=== PATIENT | male | born 1950 | race Caucasian/White ===

== ENCOUNTER 2021-12-26 08:47 | Observation (INO) ==
--- NOTE | 2021-12-26 09:41 | History & Physical Report ---
Date of Service December 26, 2021 Assessment & Plan (1) CHB (complete heart block): Plan: pt needs a pacemaker due to the CHB; discussed with pt that his EF is markedly down and that he would benefit from an ICD as well; given that pt will most likely be dependent on the pacemaker I think it is best from an infectious perspective he get the BIV ICD today. Discussed the procedure and potential risks, pt expressed an understanding and consents signed. (2) NICM (nonischemic cardiomyopathy): (3) Aortic stenosis: History of Present Illness Chief Complaint: SOB and near syncope Primary Care Provider: Linn Navarrete DO Pt admitted to outside hospital due to SOB; he was found to be in a high degree AV block; his low dose Toprol was held and he was monitored for a few more days; but he continued to have episodes of intermittent CHB and was recommended at minimum a pacemaker prior to discharge. Pt has recently diagnosed NICM with an EF of 20% and moderate . Allergies Allergy/AdvReac Type Severity Reaction Status Date / Time No Known Allergies Allergy Unverified 12/26/21 09:22 Home Medications Medication Instructions Recorded Confirmed Type aspirin 81 mg chewable tablet 81 mg PO DAILY 12/26/21 12/26/21 History empagliflozin 10 mg tablet 10 mg PO DAILY 12/26/21 12/26/21 History (Jardiance) furosemide 40 mg tablet (Lasix) 40 mg PO DAILY 12/26/21 12/26/21 History lisinopril 2.5 mg tablet 2.5 mg PO DAILY 12/26/21 12/26/21 History metoprolol succinate 25 mg 25 mg PO DAILY 12/26/21 12/26/21 History tablet,extended release 24 hr simvastatin 20 mg tablet 20 mg PO HS 12/26/21 12/26/21 History spironolactone 25 mg tablet 12.5 mg PO DAILY 12/26/21 12/26/21 History Past Med/Surg History Surgical History (Updated 12/26/21 @ 09:39 by Linn Navarrete DO) H/O cardiac catheterization Social History Smoking Status: Never smoker Hx Alcohol Use: No Hx Substance Use: No Current Living Situation: Spouse Feels Safe at Home: Yes Safety Concerns: Feels Safe At This Time Review of Systems All systems reviewed & are unremarkable except as noted in HPI & below Physical Exam Physical Exam: aaox3, NAD NC/AT, EOMI Supple No JVD bradycardia S1/S2,+ murmur CTA b/l no w/r/r soft nt/nd no LE edema b/l skin intact no focal deficits Results & Data ([facility]) Vital Signs (Past 12 Hours) Vital Signs Temp Pulse Resp BP Pulse Ox O2 Del Method 12/26/21 09:06 36.5 C 71 16 111/74 95 Room Air Diagnostic Findings echo at [facility] today: EF 20% LVH and moderate
[2021-12-26] MEDS ORDERED: LIDOCAINE 1% LOCAL 20 ML VIAL ONE ×2 (09:45→15:06)
[2021-12-26] MEDS ORDERED: BUPIVACAINE 0.25% 30 ML VIAL ONE (09:46)
[2021-12-26] MEDS ORDERED: fentaNYL citrate 100 MCG/2 ML VIAL ONE (09:46)
[2021-12-26] MEDS ORDERED: VANCOMYCIN HCL 1000MG/20ML VIAL ONE (09:46)
[2021-12-26] MEDS ORDERED: MIDAZOLAM HCL 5 MG/ML 1 ML VIAL ONE (09:46)
[2021-12-26] MEDS ORDERED: WATER, STERILE FOR INJ 10 ML VIAL ONE (09:46)
[2021-12-26] MEDS ORDERED: ceFAZolin 330 MG/ML 1 GM VIAL ONE (09:47)
--- NOTE | 2021-12-26 11:07 | Post Anesthesia Assessment ---
Date of Service December 26, 2021 Post Sedation Assessment Vital Signs Temp Pulse Resp BP Pulse Ox O2 Del Method 12/26/21 09:06 36.5 C 71 16 111/74 95 Room Air Recovery Score Activity: Moves 4 extremities Respiration: Deep Breath/Cough Circulation: +/-20% PreAnes Value Consciousness: Fully Awake Oxygen Saturation: > 92% On Room Air Discharge Sedation Level of Care: Fast Track Phase II Post Sedation Plan On clinical assessment, the patient appears to have tolerated the sedation without complications. Patient is recovering as anticipated. Patient will continue to be monitored by nursing and may be discharged when sedation discharge criteria are met per below protocol. Upon Completions of procedure up to 15 minutes continue every 5 minute vital signs and the P.A.R. score; then discharge to a Phase I or Fast Track to Phase II per the following guidelines: * Discharge Patient to appropriate Phase II area if PAR is 8 or greater or return to pre- procedure baseline. The post - procedure orders will be as directed. * If PAR score is less than 8 or not return to pre-procedure baseline then patient will follow Phase I monitoring till PAR is reached for Phase II. The Phase I may be done in procedure room or may call to secure a Phase I area. * If naloxone or flumazenil are used for reversal, hold in Phase I for continued monitoring from when last reversal dose was given for a minimum of 60 minutes or longer pending the nurse and/or physician discretion of patient condition before discharge to Phase II. Please call the Sedation Physician to re-evaluate and complete post-note for discharge to Phase II area. Do NOT discharge from procedure sedation or Phase 1 until post- sedation evaluation note is complete by procedure /sedation MD Sedation Discharge Instructions to be given to the patient at discharge to home.
--- NOTE | 2021-12-26 11:08 | Operative Report ---
Post Operative Report Pre & Post Diagnosis Intermittent CHB, RBBB, CHF, NICM, Operation Date: 12/26/21 10:00 <No data on this case meets the specified criteria> I identified the patient and participated in the time-out.: Yes Procedure Operation Date: 12/26/21 10:00 BiV ICD peripheral venogram <No data on this case meets the specified criteria> Surgeon Linn Navarrete, DO Casting Supervisor none Estimated Blood Loss 40 Findings Consistent with Post-Op Diagnosis Specimens none Complications possible [id number] still pending Description of Procedure see official report I attest to the content of the Intraoperative Record and any orders documented therein. Any exceptions are noted below.
--- NOTE | 2021-12-26 11:45 | XRay Report ---
SINGLE VIEW CHEST CLINICAL HISTORY: Status post pacemaker implantation. FINDINGS: 2 AP, portable, upright chest radiographs are obtained. No prior studies are available for comparison at the time of dictation. The examination is degraded by portable technique and patient ro tation. A 3-lead cardiac AICD has been implanted. Leads project over the right atrial appendage, the right ventricle, and the coronary sinus. The heart is enlarged noting atherosclerotic calcification o f the thoracic aorta. The pulmonary vasculature is noncongested. There is atelectasis at the left eliza g base. No airspace consolidation or large pleural effusion is identified. A calcified granuloma ther e is seen in the right midlung. There is a moderate left-sided pneumothorax with 4 cm of apical pleur al separation. The skeletal structures are osteopenic. The bony thorax is grossly intact. Cholecystec slava clips are seen in the right upper quadrant. IMPRESSION: 1. Moderate left apical pneumothorax. 2. A cardiac AICD has been implanted as above. 3. Cardiomegaly without radiographic evidence of congestive failure. 4. No airspace consolidation or large pleural effusion is identified ACT 112: Negative or not required by law. Electronically signed by: Uvaldo Hernandez M.D. 12/26/2021 11:43 AM
[2021-12-26] MEDS ORDERED: ACETAMINOPHEN 325 MG TAB ONE (13:25)
[2021-12-26] MEDS ORDERED: ICU PROTOCOL FOR HYPERGLYCEMIA PRN (14:30)
--- NOTE | 2021-12-26 14:44 | Critical Care Consultation ---
Date of Consultation December 26, 2021 Assessment & Plan (1) Pneumothorax: (2) Chronic heart failure with reduced ejection fraction and diastolic dysfunction: (3) HTN (hypertension): (4) Diabetes: (5) CHB (complete heart block): (6) NICM (nonischemic cardiomyopathy): (7) Aortic stenosis: (8) Non Hodgkin's lymphoma: (9) Pancreatic mass: Plan ICU Assessment and Plans 71 yo M with PMH HTN, DM2, aortic stenosis, NICM, complete heart block, HFrEF (EF 20% this month) and non-Hodgkin's lymphoma admitted to ICU for L pneumothorax following BIV ICD pacemaker implantation today, requiring ongoing monitoring of respiratory status and pneumothorax management. Neuro - [facility] ICU: NEGATIVE Sedation: None Analgesia: Tylenol PRN Mentating at baseline Cardiac - Complete heart block -S/p BIV AICD implantation on 12/26 -F/u CXR confirmed AICD in place -HR 70s, paced sinus rhythm at present per telemetry -Cardiology following Non-ischemic cardiomyopathy -Continue home lisinopril 2.5 mg, simvastatin, aspirin -Home metoprolol 25 mg initially held at outside hospital due to complete heart block, can resume metoprolol now s/p ICD placement HFrEF -CXR with evidence of cardiomegaly but not pulmonary edema or pleural effusion, pt also not hypervolemic at present -Echocardiogram from outside hospital with EF 20%, LVH, moderate -Continue home Lasix 40 mg, spironolactone, lisinopril, metoprolol resumed as above -Daily weights, I's and O's- no Telles in place as pt is spontaneously voiding Respiratory - Acute mild tension pneumothorax 2/2 trauma from pacemaker implantation -CXR after pacemaker- moderate L apical-basilar pneumothorax 4 cm in size, increased in size on repeat CXR, no tracheal deviation or mediastinal shift -Pt remained hemodynamically stable since admission to ICU -Needle decompression to chest tube suction performed at bedside on 12/26 -Pt tolerated procedure well, remained stable- some post-procedural emesis, Zofran administered -Serial CXRs to follow -Continue supplemental O2, wean to RA as tolerated GI - -Carb consistent, heart healthy diet ordered RENAL/ELECTROLYTES - -Avoiding fluids at this time due to pt's EF 20% -BMP, Mg, Phos ordered for AM -Replace electrolytes as needed- repletion protocol - -No concerns at this time ENDO - -Holding home diabetes medication -ICU hyperglycemia protocol HEME - -No concern for acute bleeding at this time -CBC ordered for AM ID - -No concern for infection at this time -CXR does not demonstrate evidence of pneumonia INTEGUMENTARY - -No issues at this time LINES/IV ACCESS - -PIV x2 -Thoracostomy with Pleur-Evac suction DVT PROPHYLAXIS - -Heparin 5000u SQ BID Anticipate downgrade from ICU in AM Supervising Physician Co-Signing Physician Notes Dr. Fofana was resident physician during care of patient. I separately evaluated patient for cash portions of the history and the exam. I was present during the critical portion of medical decision making, and I discussed the case with the resident. I generally agree with the findings and plan. Follow-up status post pacemaker placement with pneumothorax. Placed chest tube, anticipate transition to waterseal later this evening with follow-up x-rays in morning History of Present Illness Reason for Consultation: Pneumothorax s/p pacemaker implantation Requesting Physician: Linn Navarrete Attending Physician: Linn Navarrete, DO History of Present Illness 71 yo M with PMH HTN, DM2, aortic stenosis, NICM, complete heart block, HFrEF (EF 20% this month) and non-Hodgkin's lymphoma admitted to ICU for L pneumotho rax following BIV ICD pacemaker implantation today. Pt states he has had progressive dyspnea, fatigue and multiple near syncopal episodes over last several days which led to admission at [facility] on 12/22. Was subsequently found to have complete AV block, echocardiogram with EF 20% and moderate aortic stenosis, recent diagnosis of non-ischemic cardiomyopathy. Pt had multiple episodes of intermittent complete heart block and was recommended to undergo pacemaker implantation. Pt was subsequently transferred to [facility] on 12/26 for pacemaker implantation as this procedure would be delayed at outside hospital. Pt underwent BIV ICD implantation on 12/26. Later began to experience dyspnea and respiratory distress with L sided chest tightness which improved with 15L O2 via non-rebreather. CXR s/p procedure with evidence of moderate L apical pneumothorax. Pt subsequently transferred to ICU. On evaluation, pt continues to report dyspnea and some L sided chest discomfort but denies any difficulty speaking. Denies any overt pain, palpitations, swelling. Allergies Allergy/AdvReac Type Severity Reaction Status Date / Time No Known Allergies Allergy Unverified 12/26/21 09:22 Home Medications Medication Instructions Recorded Confirmed Type aspirin 81 mg chewable tablet 81 mg PO DAILY 12/26/21 12/26/21 History empagliflozin 10 mg tablet 10 mg PO DAILY 12/26/21 12/26/21 History (Jardiance) furosemide 40 mg tablet (Lasix) 40 mg PO DAILY 12/26/21 12/26/21 History lisinopril 2.5 mg tablet 2.5 mg PO DAILY 12/26/21 12/26/21 History metoprolol succinate 25 mg 25 mg PO DAILY 12/26/21 12/26/21 History tablet,extended release 24 hr metoprolol succinate 25 mg 25 mg PO DAILY #30 tabs 12/26/21 Rx tablet,extended release 24 hr (Toprol XL) simvastatin 20 mg tablet 20 mg PO HS 12/26/21 12/26/21 History spironolactone 25 mg tablet 12.5 mg PO DAILY 12/26/21 12/26/21 History Patient History Surgical History (Updated 12/26/21 @ 09:39 by Linn Navarrete DO) H/O cardiac catheterization Social History Smoking Status: Never smoker Hx Alcohol Use: No Hx Substance Use: No Current Living Situation: Spouse Feels Safe at Home: Yes Safety Concerns: Feels Safe At This Time Review of Systems Review of Systems: Per HPI Physical Exam Physical Exam: GENERAL - Appears stated age, communicating with provider and answering questions appropriately. Non-rebreather mask in place SKIN - No rashes. HEAD - NC/AT. EYES - PERRL with EOMI b/l. Anicteric sclerae. No conjunctival injection b/l EARS - No deformities of external structures b/l NOSE - Midline. No epistaxis or purulent drainage. Septum midline without deviation. MOUTH/OROPHARYNX - No perioral cyanosis. Buccal mucosa pink and moist. NECK - supple, no tracheal deviation, no JVD b/l, no anterior/posterior cervical lymphadenopathy, no thyromegaly, no nuchal rigidity LUNGS - Significantly diminished/faint breath sounds of L upper lung field, clear breath sounds in all lung ceballos of R side, no basilar crackles or wheezes b/l, no intercostal retractions CARDIAC - RRR with normal S1/S2. +3/6 systolic murmur over LUSB ABDOMEN - Soft, nontender, nondistended. Normal bowel sounds. No guarding or rebound. No hepatosplenomegaly or ascites. EXTREMITIES - No clubbing or peripheral cyanosis. No peripheral edema present. Dstal pulses of LE intact b/l NEUROLOGIC - AOx3, no gross focal motor or sensory deficits Results & Data Results & Data ([facility]) Vital Signs (Past 12 Hours) Vital Signs Temp Pulse Resp BP Pulse Ox O2 Del Method O2 Flow Rate 12/26/21 13:15 74 18 119/83 97 Non-rebreather 15 12/26/21 12:45 69 18 112/73 97 Non-rebreather 15 12/26/21 12:15 65 20 95/63 L 97 Non-rebreather 15 12/26/21 12:00 67 16 110/72 97 Non-rebreather 15 12/26/21 11:45 66 16 111/73 97 Non-rebreather 15 12/26/21 11:30 64 16 91/53 L 97 Nasal Cannula 4 12/26/21 11:15 75 16 98/65 L 93 Room Air 12/26/21 09:06 36.5 C 71 16 111/74 95 Room Air Resident Activity Tracking Resident Involvement: Resident Care Provided Care Provided: Adult Hospital Medicine
--- NOTE | 2021-12-26 15:09 | XRay Report ---
SINGLE VIEW CHEST CLINICAL HISTORY: Follow-up pneumothorax. FINDINGS: An AP, portable, upright chest radiograph is compared to study performed earlier the same d ay 12/26/2021. A 3-lead cardiac AICD is unchanged in position. The heart is enlarged noting atheroscler otic calcification of the thoracic aorta. The pulmonary vasculature is noncongested. The lungs and pl eural spaces are clear. A moderate to large left pneumothorax has increased in size from previous. Th is now extends to the left lung base. The trachea is midline. No right-sided pneumothorax is seen. Th e skeletal structures are osteopenic. The bony thorax is grossly intact. IMPRESSION: 1. There is a moderate to large left apical to basilar pneumothorax. This has increased in size from previous. 2. The trachea is midline. 3. Cardiomegaly and AICD without radiographic evidence of congestive failure. ACT 112: Negative or not required by law. Electronically signed by: Uvaldo Hernandez M.D. 12/26/2021 3:07 PM
[2021-12-26] MEDS ORDERED: ONDANSETRON INJ 2 MG/ML 2 ML VIAL ONE (15:23)
[2021-12-26] MEDS ORDERED: ONDANSETRON INJ 2 MG/ML 2 ML VIAL IV PRN (15:29)
[2021-12-26] MEDS ORDERED: Nursing to Pharmacy Communication SCH (15:45)
[2021-12-26] MEDS ORDERED: LIDOCAINE 1% LOCAL 20 ML VIAL INFIL ONE (16:15)
[2021-12-26] MEDS: ICU ELECTROLYTE REPLACEMENT PROTOCOL SCH (16:36)
--- NOTE | 2021-12-26 17:16 | XRay Report ---
XR chest 1V portable CLINICAL HISTORY: PTX drain TECHNIQUE: Single frontal radiograph of the chest was obtained. Comparison: Comparison is made to chest radiograph 12/26/2021 FINDINGS: Interval placement of a left chest wall drain. Previously noted left pneumothorax is significantly de creased in size. There is suggestion of a small apical component. The cardiomediastinal silhouette is stable. Stable appearance of AICD. IMPRESSION: Interval placement of a left chest drain with significant decrease in size of left pneumothorax. Ther e is likely a trace pneumothorax at the apex. ACT 112: Negative or not required by law. Electronically signed by: Domenico Gunn M.D. 12/26/2021 5:14 PM
[2021-12-26] MEDS: ACETAMINOPHEN 325 MG TAB PO PRN ×2 (19:50→23:45)
[2021-12-26] MEDS: HEPARIN SOD 5,000 UNIT/0.5 ML VIAL SQ SCH (20:34)
[2021-12-26] MEDS ORDERED: SIMVASTATIN 20 MG TAB PO SCH (21:00)
[2021-12-27] MEDS ORDERED: MoRPHine SULFATE 2 MG/ML CARP IV STA (00:18)
[2021-12-27] MEDS ORDERED: MoRPHine SULFATE 2 MG/ML CARP ONE (00:21)
[2021-12-27 06:40] LABS: Hemoglobin 14.9 g/dl (14.0-18.0); Mean Corpuscular Hemoglobin 29.6 pg (25.0-34.0); Mean Corpuscular Hgb Conc 34.7 g/dL (32.0-36.0); Mean Corpuscular Volume 85.3 fL (80.0-100.0); Mean Platelet Volume 11.6 fL (9.4-12.4); Platelet Count 174 K/uL (130-400); RDW Coefficient of Variation 13.3 % (11.5-14.5); RDW Standard Deviation 41.4 fL (36.4-46.3); Red Blood Count 5.04 M/uL (4.63-6.08); White Blood Count 7.55 K/ul (4.8-10.8)
[2021-12-27 07:05] LABS: BUN Creatinine Ratio 31.3 (10-20); Calcium 9.4 mg/dl (8.5-10.1); Creatinine Clr Calc Pharmacy 64.6 ml/min; Est GFR (African American) 92.4 ml/min; Est GFR (Non-African American) 79.8 ml/min; Magnesium 1.9 mg/dl (1.7-2.4); Phosphorus 4.2 mg/dl (2.5-4.9); Potassium 4.4 mmol/L (3.5-5.1)
[2021-12-27] MEDS ORDERED: Nursing to Pharmacy Communication SCH (07:15)
[2021-12-27] MEDS: HEPARIN SOD 5,000 UNIT/0.5 ML VIAL SQ SCH (07:27)
[2021-12-27] MEDS: ICU ELECTROLYTE REPLACEMENT PROTOCOL SCH (07:27)
[2021-12-27] MEDS: MAGNESIUM SULFATE / D5W 1 GM/100 ML BAG IV SCH ×2 (07:31→09:26)
[2021-12-27] MEDS ORDERED: lisinopril 2.5 MG TAB PO SCH (09:00)
[2021-12-27] MEDS ORDERED: FUROSEMIDE 40 MG TAB PO SCH (09:00)
[2021-12-27] MEDS ORDERED: ASPIRIN 81 MG ECTAB PO SCH (09:00)
[2021-12-27] MEDS ORDERED: METOPROLOL SUCC 25MG EXT REL TAB PO SCH (09:00)
[2021-12-27] MEDS ORDERED: SPIRONOLACTONE 12.5 MG TAB PO SCH (09:00)
--- NOTE | 2021-12-27 09:29 | Billing Data ---
Date of Service December 26, 2021 Coding Level of Care Code 31969 Inpt Consult Level 5
--- NOTE | 2021-12-27 09:32 | Critical Care Progress Note ---
Date of Service December 27, 2021 Assessment & Plan (1) Pneumothorax: Plan ICU Assessment and Plans 71 yo M with PMH HTN, DM2, aortic stenosis, NICM, complete heart block, HFrEF (EF 20% this month) and non-Hodgkin's lymphoma admitted to ICU for L pneumothorax following BIV ICD pacemaker implantation today, requiring ongoing monitoring of respiratory status and pneumothorax management. Neuro - CAM ICU: NEGATIVE Sedation: None Analgesia: Tylenol PRN Mentating at baseline Cardiac - Complete heart block -S/p BIV AICD implantation on 12/26 -F/u CXR confirmed AICD in place -HR 70s, paced sinus rhythm at present per telemetry -Cardiology following Non-ischemic cardiomyopathy -Continue home lisinopril 2.5 mg, simvastatin, aspirin -Home metoprolol 25 mg initially held at outside hospital due to complete heart block, can resume metoprolol now s/p ICD placement HFrEF -CXR with evidence of cardiomegaly but not pulmonary edema or pleural effusion, pt also not hypervolemic at present -Echocardiogram from outside hospital with EF 20%, LVH, moderate -Continue home Lasix 40 mg, spironolactone, lisinopril, metoprolol resumed as above -Daily weights, I's and O's- no Telles in place as pt is spontaneously voiding Respiratory - Pneumothorax appears resolved -On waterseal this morning will anticipate discontinuing Thora vent after repeat chest x-ray -Once chest tube DC'd will require follow-up 2 to 3 hours after that and could anticipate discharge if no reaccumulation of pneumothorax GI - -Carb consistent, heart healthy diet ordered RENAL/ELECTROLYTES - -Avoiding fluids at this time due to pt's EF 20% -BMP, Mg, Phos ordered for AM -Replace electrolytes as needed- repletion protocol - -No concerns at this time ENDO - -Holding home diabetes medication -ICU hyperglycemia protocol INTEGUMENTARY - -No issues at this time LINES/IV ACCESS - -PIV x2 DVT PROPHYLAXIS - -Heparin 5000u SQ BID Admission and Anticipated Discharge Date Admission Date: December 26, 2021 Supervising Physician Co-Signing Physician Notes update at 1400: interval removal of the chest tube, no reoccurance of PTX. Stable for discharge from [facility]. Advised to avoid air travel for 30 days. Subjective Feels at baseline. Hopes to go home later today Review of Systems Review of Systems: Nausea and vomiting have resolved Physical Exam Physical Exam: General: Alert. nontoxic. Skin: Warm, dry, Head: Atraumatic Ears, nose, mouth and throat: airway patent Cardiovascular: Normal peripheral perfusion Respiratory: no respiratory distress Thora vent in left chest. No airleak noted Gastrointestinal: Non distended Musculoskeletal: No deformity Results & Data Results & Data ([facility]) Vital Signs (Past 12 Hours) Vital Signs Temp Pulse Resp BP Pulse Ox O2 Del Method 12/27/21 08:01 136/67 12/27/21 08:01 36.7 C 76 20 96 Room Air 12/27/21 08:00 87 20 96 12/27/21 07:00 67 18 93 12/27/21 07:00 137/83 12/27/21 06:45 67 15 95 Room Air 12/27/21 08:00 77 12/27/21 03:30 77 14 96 12/27/21 03:01 71 18 93 12/27/21 03:01 113/77 12/27/21 03:00 68 23 95 12/27/21 02:30 72 34 H 98 12/27/21 02:00 69 37 H 94 12/27/21 02:00 114/67 12/27/21 01:30 61 17 95 12/27/21 01:00 69 14 95 12/27/21 01:00 128/67 12/27/21 00:30 61 20 98 12/27/21 00:00 64 21 96 12/27/21 00:00 115/59 L 12/26/21 23:50 72 12 96 12/26/21 23:40 64 21 96 12/26/21 23:30 64 28 H 96 12/26/21 23:20 63 16 96 12/26/21 23:10 92 H 19 97 12/26/21 23:00 67 18 97 12/26/21 23:00 130/86 12/26/21 22:50 77 17 95 12/26/21 22:40 69 15 95 12/26/21 22:30 69 18 95 12/26/21 22:20 58 L 15 97 12/26/21 22:10 70 15 96 12/26/21 22:00 82 24 95 12/26/21 22:00 121/83 12/26/21 21:50 63 16 95 12/26/21 21:40 72 15 95 12/26/21 21:30 61 15 94 Critical Care Results & Data Vital Signs (Past 12 Hours) Vital Signs Temp Pulse Resp BP Pulse Ox O2 Del Method 12/27/21 08:01 136/67 12/27/21 08:01 36.7 C 76 20 96 Room Air 12/27/21 08:00 87 20 96 12/27/21 07:00 67 18 93 12/27/21 07:00 137/83 12/27/21 06:45 67 15 95 Room Air 12/27/21 08:00 77 12/27/21 03:30 77 14 96 12/27/21 03:01 71 18 93 12/27/21 03:01 113/77 12/27/21 03:00 68 23 95 12/27/21 02:30 72 34 H 98 12/27/21 02:00 69 37 H 94 12/27/21 02:00 114/67 12/27/21 01:30 61 17 95 12/27/21 01:00 69 14 95 12/27/21 01:00 128/67 12/27/21 00:30 61 20 98 12/27/21 00:00 64 21 96 12/27/21 00:00 115/59 L 12/26/21 23:50 72 12 96 12/26/21 23:40 64 21 96 12/26/21 23:30 64 28 H 96 12/26/21 23:20 63 16 96 12/26/21 23:10 92 H 19 97 12/26/21 23:00 67 18 97 12/26/21 23:00 130/86 12/26/21 22:50 77 17 95 12/26/21 22:40 69 15 95 12/26/21 22:30 69 18 95 12/26/21 22:20 58 L 15 97 12/26/21 22:10 70 15 96 12/26/21 22:00 82 24 95 12/26/21 22:00 121/83 12/26/21 21:50 63 16 95 12/26/21 21:40 72 15 95 Lab & Micro Results (Past 24 Hours) RBC 5.04 M/uL (4.63-6.08) 12/27/21 WBC 7.55 K/ul (4.8-10.8) 12/27/21 Hgb 14.9 g/dl (14.0-18.0) 12/27/21 Hct 43.0 % (40.1-51.0) 12/27/21 MCV 85.3 fL (80.0-100.0) 12/27/21 MCH 29.6 pg (25.0-34.0) 12/27/21 MCHC 34.7 g/dL (32.0-36.0) 12/27/21 RDW Standard Deviation 41.4 fL (36.4-46.3) 12/27/21 RDW Coefficient of Variation 13.3 % (11.5-14.5) 12/27/21 Plt Count 174 K/uL (130-400) 12/27/21 MPV 11.6 fL (9.4-12.4) 12/27/21 Na 129 mmol/L (136-145) L 12/27/21 K 4.4 mmol/L (3.5-5.1) 12/27/21 Cl 96 mmol/L (98-107) L 12/27/21 CO2 25 mmol/L (21-32) 12/27/21 Anion Gap 8 (3-11) 12/27/21 BUN 30 mg/dl (6-23) H 12/27/21 Creatinine 0.96 mg/dl (0.6-1.4) 12/27/21 Estimated GFR ( Amer) 92.4 ml/min 12/27/21 Estimated GFR (Non-Af Amer) 79.8 ml/min 12/27/21 BUN/Creatinine Ratio 31.3 (10-20) H 12/27/21 Glu 92 mg/dl (70-99(Fasting)) 12/27/21 Ca 9.4 mg/dl (8.5-10.1) 12/27/21 Phosphorus Level 4.2 mg/dl (2.5-4.9) 12/27/21 Mg 1.9 mg/dl (1.7-2.4) 12/27/21 05:35 Calcium Level 9.4 mg/dl (8.5-10.1) 12/27/21 05:35 Diagnostic Findings (Past 24 Hours) Chest X-Ray 12/26/21 11:08 SINGLE VIEW CHEST CLINICAL HISTORY: Status post pacemaker implantation. FINDINGS: 2 AP, portable, upright chest radiographs are obtained. No prior studies are available for comparison at the time of dictation. The examination is degraded by portable technique and patient rotation. A 3-lead cardiac AICD has been implanted. Leads project over the right atrial appendage, the right ventricle, and the coronary sinus. The heart is enlarged noting atherosclerotic calcification of the thoracic aorta. The pulmonary vasculature is noncongested. There is atelectasis at the left lung base. No airspace consolidation or large pleural effusion is identified. A calcified granuloma there is seen in the right midlung. There is a moderate left-sided pneumothorax with 4 cm of apical pleural separation. The skeletal structures are osteopenic. The bony thorax is grossly intact. Cholecystectomy clips are seen in the right upper quadrant. IMPRESSION: 1. Moderate left apical pneumothorax. 2. A cardiac AICD has been implanted as above. 3. Cardiomegaly without radiographic evidence of congestive failure. 4. No airspace consolidation or large pleural effusion is identified ACT 112: Negative or not required by law. Electronically signed by: Uvaldo Hernandez M.D. 12/26/2021 11:43 AM Chest X-Ray 12/26/21 14:55 SINGLE VIEW CHEST CLINICAL HISTORY: Follow-up pneumothorax. FINDINGS: An AP, portable, upright chest radiograph is compared to study performed earlier the same day 12/26/2021. A 3-lead cardiac AICD is unchanged in position. The heart is enlarged noting atherosclerotic calcification of the thoracic aorta. The pulmonary vasculature is noncongested. The lungs and pleural spaces are clear. A moderate to large left pneumothorax has increased in size fr om previous. This now extends to the left lung base. The trachea is midline. No right-sided pneumothorax is seen. The skeletal structures are osteopenic. The bony thorax is grossly intact. IMPRESSION: 1. There is a moderate to large left apical to basilar pneumothorax. This has increased in size from previous. 2. The trachea is midline. 3. Cardiomegaly and AICD without radiographic evidence of congestive failure. ACT 112: Negative or not required by law. Electronically signed by: Uvaldo Hernandez M.D. 12/26/2021 3:07 PM Chest X-Ray 12/26/21 15:29 XR chest 1V portable CLINICAL HISTORY: PTX drain TECHNIQUE: Single frontal radiograph of the chest was obtained. Comparison: Comparison is made to chest radiograph 12/26/2021 FINDINGS: Interval placement of a left chest wall drain. Previously noted left pneumothorax is significantly decreased in size. There is suggestion of a small apical component. The cardiomediastinal silhouette is stable. Stable appearance of AICD. IMPRESSION: Interval placement of a left chest drain with significant decrease in size of left pneumothorax. There is likely a trace pneumothorax at the apex. ACT 112: Negative or not required by law. Electronically signed by: Domenico Gunn M.D. 12/26/2021 5:14 PM I & O Totals 24 Hours 12/26/21 12/27/21 12/28/21 06:59 06:59 06:59 Intake Total 500 / 500 100 / 100 Output Total 1500 / 1500 Balance -1000 / -1000 100 / 100 Cumulative 12/26/21 07:01 thru 12/27/21 09:26 Intake Total 600 Output Total 1500 Balance -900 RT Ventilator Mngmt (Last Documented) Ventilator Ordered Settings Respiratory Rate 20 12/27/21 08:01 Fraction of Inspired Oxygen 100 12/26/21 15:48 Ventilator - PT Measurements Respiratory Rate 20 End-Tidal CO2 26 Coding Level of Care Code 58964 Subseq Hosp Care Lvl 3 Diagnoses Pneumothorax J93.9
--- NOTE | 2021-12-27 10:05 | XRay Report ---
XR chest 1V portable HISTORY: 71 years-old Male lines follow-up study in a patient with left-sided pneumothorax COMPARISON: Chest radiograph 12/27/2021 at 7:00 AM TECHNIQUE: Portable AP view of the chest FINDINGS: Cardiac silhouette is mildly enlarged. Left subclavian pacer/AICD. A pleural catheter projects over t he left midlung. Trace left apical pneumothorax is stable. Linear left basilar opacities suggestive o f atelectasis versus scarring. Subcutaneous emphysema of the left lateral chest wall. Bones appear gr ossly intact. IMPRESSION: Unchanged trace left apical pneumothorax. ACT 112: Negative or not required by law. The above report was generated using voice recognition software. It may contain grammatical, syntax o r spelling errors. Electronically signed by: Pino Valenzuela M.D. 12/27/2021 10:04 AM
--- NOTE | 2021-12-27 10:14 | XRay Report ---
XR chest 1V portable CLINICAL HISTORY: Pneumothorax. COMPARISON STUDY: Chest radiograph March 27, 2022 at 4:34 PM. FINDINGS: Left subclavian biventricular pacer/AICD is in place. A left-sided pleural catheter is note d. There is a trace left apical pneumothorax. No evidence for pulmonary edema. Cardiomegaly is unchan ged. Calcified right lung nodule is present. Small amount of gas within the left chest wall/axilla is noted. IMPRESSION: Left pleural catheter in place. Trace left apical pneumothorax. ACT 112: Negative or not required by law. Electronically signed by: Jonah Gilmore M.D. 12/27/2021 10:13 AM
--- NOTE | 2021-12-27 13:44 | XRay Report ---
XR chest 1V portable CLINICAL HISTORY: lines COMPARISON STUDY: Chest radiograph December 27, 2021 at 9:46 AM. FINDINGS: Left pleural catheter has been removed. No left pneumothorax is identified. Small amount of gas within the left axilla, chest wall and neck is noted. Left subclavian pacer/AICD is in place. Th ere is cardiomegaly without evidence for pulmonary edema. There is mild retrocardiac opacity. IMPRESSION: 1. Interval removal of the left pleural catheter. No pneumothorax. 2. Cardiomegaly without evidence for pulmonary edema. 3. Mild retrocardiac opacity. ACT 112: Negative or not required by law. Electronically signed by: Jonah Gilmore M.D. 12/27/2021 1:42 PM
--- NOTE | 2021-12-27 14:51 | Cardiology Progress Note ---
Date of Service December 27, 2021 Assessment & Plan (1) CHB (complete heart block): Plan: Pt s/p BiV ICD POD 1 normal function recommend follow up with his general cardiology; he needs a device check next week Continue toprol, ACEI and other home cardiac medications ok for discharge home today (2) Pneumothorax: Plan: complication from BiV ICD; s/p chest tube removal repeat chest xray looks good; recommend f/u with PCP and repeat CXR later this week or early next week (3) NICM (nonischemic cardiomyopathy): Admission and Anticipated Discharge Date Admission Date: December 26, 2021 Subjective Pt POD 1 from BiV ICD complicated with left sided PTX-chest tube removed earlier today; Pt reports feeling well no compliants Review of Systems Review of Systems: All systems reviewed & are unremarkable except as noted in HPI & below Physical Exam Physical Exam: aaox3, NAD NC/AT, EOMI Supple No JVD Nrl S1/S2, + murmur CTA b/l no w/r/r soft nt/nd no LE edema b/l skin intact no focal deficits ICD site dressing in place Results & Data ([facility]) Vital Signs (Past 12 Hours) Vital Signs Temp Pulse Resp BP Pulse Ox O2 Del Method 12/27/21 14:30 69 16 12/27/21 14:00 70 35 H 12/27/21 13:38 127/94 12/27/21 13:38 78 23 12/27/21 13:33 76 10 L 12/27/21 13:00 68 21 95 12/27/21 13:00 118/80 12/27/21 12:30 76 19 97 12/27/21 12:01 68 29 H 97 12/27/21 12:01 130/65 12/27/21 12:00 78 27 H 96 12/27/21 11:30 74 24 96 12/27/21 11:00 65 27 H 83 L 12/27/21 11:00 119/71 12/27/21 11:26 59 L 12/27/21 10:30 59 L 22 97 12/27/21 10:11 123/72 12/27/21 10:11 59 L 17 96 12/27/21 10:00 69 20 12/27/21 09:35 72 20 12/27/21 09:00 67 18 92 12/27/21 09:00 124/79 12/27/21 08:30 72 17 97 12/27/21 08:01 136/67 12/27/21 08:01 36.7 C 76 20 96 Room Air 12/27/21 08:00 87 20 96 12/27/21 07:00 67 18 93 12/27/21 07:00 137/83 12/27/21 06:45 67 15 95 Room Air 12/27/21 08:00 77 12/27/21 03:30 77 14 96 12/27/21 03:01 71 18 93 12/27/21 03:01 113/77 12/27/21 03:00 68 23 95
--- NOTE | 2021-12-27 17:42 | Electrocardiogram Report ---
Test Reason : Blood Pressure : / mmHG Vent. Rate : 067 BPM Atrial Rate : 067 BPM P-R Int : 000 ms QRS Dur : 152 ms QT Int : 464 ms P-R-T Axes : 000 029 -76 degrees QTc Int : 490 ms AV sequential pacing with frequent PVCs in a pattern of ventricular bigeminy Left bundle branch block Abnormal ECG No previous ECGs available Confirmed by Oscar Gr ([id number]) on 12/27/2021 5:41:31 PM Referred By: Linn Navarrete Confirmed By:Scott Gr
--- NOTE | 2021-12-28 02:41 | Procedure Note ---
Procedure Note Date of Service December 26, 2021 Note Procedure Date: noted above Procedure: Anterior chest tube Pre-procedure Diagnosis: pneumothorax Diagnosis: same as above Prior to Procedure: Informed Consent: Risks and benefits to procedure were discussed and informed consent was obtained Attending Staff: Agapito Mg DO Resident/Physician Quality Technician Fiberglass: Not applicable Indications: The patient is a 71-year-old male patient with pneumothorax following left-sided pacemaker insertion requiring tube thoracostomy. The identity of the patient was confirmed and a bedside time out was performed. Description of Procedure: Patient positioned, the left second intercostal space mid axillary line was prepped with chlorhexidine and draped in usual sterile fashion. 5 mL of 1% Lidocaine without epinephrine was used to anesthetize the area. A skin kymberly was made and the Thora-vent was inserted with care over the second rib until deflection of the indicator was noted. The device was connected to 20 cm of suction and a post procedure chest x-ray was obtained. A small grade 1 airleak was noted Total Fluid Removed: Not applicable Complications: None Estimated blood loss: None A postprocedural chest x-ray was reviewed which demonstrated the tube in adequate position and improvement in the pneumothorax. Coding CPT Codes Pulmonary/Thoracic - Pulmonary and Thoracic: 04364 Tube thoracostomy ([id number]) [facility] [place] Procedure Codes (Charges) Pulmonary/Thoracic Procedure 1: Pulmonary and Thoracic: 92023 Tube thoracostomy
--- NOTE | 2022-01-07 14:31 | Operative Report (OR) ---
DATE OF PROCEDURE: 12/26/2021. PREOPERATIVE DIAGNOSES: Intermittent complete heart block, right bundle-branch block, nonischemic cardiomyopathy. POSTOPERATIVE DIAGNOSES: Intermittent complete heart block, right bundle-branch block, nonischemic cardiomyopathy. PROCEDURE: Biventricular rate responsive implantable cardiac defibrillator with a peripheral venogram. SURGEON: Linn Navarrete DO. DISTRIBUTION COLLECTION OPERATOR: None. ANESTHESIA: Monitored conscious sedation administered under my supervision by Lor Reynoso. Start time 10:09, end time 11:08. Total of 4 mg of Versed and 100 mcg of fentanyl. INTRAVENOUS FLUIDS: 50 mL. CONTRAST: 13 mL. ANTIBIOTICS: 1 g of Ancef. BLOOD LOSS: 40 mL. URINE OUTPUT: Not applicable. SPECIMENS: None. FINDINGS: See below. DRAINS: None. COMPLICATION: Pneumothorax. INDICATIONS: This is a 71-year-old gentleman who has a past medical history for recently diagnosed nonischemic cardiomyopathy, EF of 20%-25% at an outside facility, moderate aortic stenosis, right bundle-branch block, diabetes, hypertension and hyperlipidemia. He was admitted to an outside hospital due to intermittent complete heart block and was recommended a BiV ICD prior to discharge, so he had to be transferred to [facility] in order to do the procedure. CONSENT: Consent was obtained prior to the patient going into the electrophysiology lab. The patient was informed of the risks, benefits, and alternatives to the procedure. Risks include, but not limited to, sudden cardiac , cardiac arrhythmias, cerebrovascular accident, myocardial infarction, injury to the blood vessels, chamber of the heart and lung, bleeding and infection. The patient understood these risks and agreed to proceed as planned. Informed consent was obtained. DESCRIPTION OF PROCEDURE: The patient was brought into the electrophysiology lab in a fasting state. He was connected to continuous cardiac monitoring and timeout was performed to ensure patient's identity and procedure correctly. He was prepped and draped over the left infraclavicular space in normal surgical standard fashion. Monitored conscious sedation was given throughout the procedure for patient's comfort level. [place] precautions were maintained throughout the procedure. He received prophylactic antibiotics prior to incision. 20 mL of 1% lidocaine-bupivacaine mixture were given in the left deltopectoral groove. An incision was made in the left deltopectoral groove. Blunt dissection was performed down to the pectoralis muscle and then using blunt dissection over the pectoralis muscle within the pectoralis fascia, a defibrillator pocket was created. Then, a peripheral venogram was performed to identify the axillary vein. Venous axillary access was obtained on 2 separate occasions. I was having a little rough time getting access and I had a high suspicion that I did cause pneumothorax during the procedure, so I did put him on a nonrebreather during the rest of procedure. He otherwise remained hemodynamically stable throughout the procedure, but ultimately I did get venous access twice on the more lateral stick, a 7-Cuban sheath was inserted over the guidewire, the dilator was removed and a second guidewire was inserted through the sheath to allow for retained venous access and then the sheath was removed. Through the more lateral stick over one of the wires, a 9.5-Cuban sheath was inserted, the guidewire and dilator removed. Then, the right ventricular defibrillator lead was advanced into the right ventricle, positioned in the right ventricular apex under fluoroscopic guidance. There was adequate pacing and sensing thresholds and no diaphragmatic stimulation with high output pacing. The 9.5-Cuban sheath was peeled away and the lead was fixated to pectoralis muscle using 0 silk suture. A 7-Cuban sheath was advanced over the guidewire through the more medial stick. The guidewire and dilator removed. Then, the His C315 sheath was advanced through the 7-Cuban sheath over a Glidewire into the right ventricle. The Glidewire and dilator removed and the left bundle lead was advanced through the sheath. Intracardiac electrogram His bundle recordings were attempted, but I never found a clear His, but I had an idea of where one was based on my A:V ratios, so I marked where this was on my fluoroscopy screen when the camera was in [place]ARD[place] 30, came down about 2 cm from this in a line that would extend out to the apex and could position my left bundle lead. I came on pacing in this area. I had a nice W form paced complex in V1. I then moved the camera to [place] 30 and started giving a series of clockwise turns to screw the lead into the septum, pausing every once in a while to see how the pacing complex changed. I ultimately did form a nice R prime pattern in V1. I gave contrast through the sheath to see how I was well into the septum and I then slit the His C315 sheath under fluoroscopic guidance, leaving the 7-Cuban sheath in while I positioned the right atrial lead. A 7-Cuban sheath was then advanced over the retained guidewire in the more lateral stick. The guidewire and dilator removed. The right atrial lead was then advanced into right atrium and positioned into the right atrial appendage under fluoroscopic guidance. There was adequate pacing and sensing thresholds and no diaphragmatic stimulation with high output pacing. The 7-Cuban sheath was peeled away and the lead was fixated to pectoralis muscle using 0 silk suture. The 7-Cuban sheath around the left bundle lead was then peeled away and the lead was fixated to pectoralis muscle using 0 silk suture. The pocket was flushed with copious amounts of vancomycin and saline wash and inspected for hemostasis. The leads were then attached to the pulse generator making sure the pins were in appropriate position, passed set screws, and set screws were all tightened. Pulse generator was then placed in the antibiotic pouch followed then by being placed in the pocket, making sure the leads were lying flat beneath the device. The incision was closed in a 3-layer fashion using 2-0 Vicryl interrupted suture followed by 3-0 Vicryl interrupted suture, followed by a 4-0 Monocryl running stitch and Dermabond was applied followed by Telfa and Tegaderm dressing. EQUIPMENT: 1. The pulse generator is a Medtronic [employer] MRI ADA ACCOMMODATION CONSULTANT-D SureScan [id number], serial number [id number]. 2. TYRX pouch, reference [id number], lot number [id number]. 3. Right atrial lead, Medtronic 5076-52 cm, serial number [id number]. 4. Right ventricular lead, Medtronic 6935M-62 cm, serial number [id number]. 5. Left bundle lead, Medtronic 3830-69 cm, serial number [id number]. FINAL PARAMETERS: DDD 60/130. Right atrial and right ventricular amplitude 3.5 volts, pulse width 0.4 milliseconds, sensitivity 0.3 millivolts. Left bundle lead amplitude 4 volts, pulse width 0.4 milliseconds. VT monitor zone 150 beats per minute for 32 detection intervals and a VF zone at 200 beats per minute for 30 detection intervals. IMPRESSION: Successful biventricular rate responsive implantable cardiac defibrillator under fluoroscopic guidance along with a peripheral venogram secondary to nonischemic cardiomyopathy, intermittent complete heart block and right bundle-branch block. PLAN: Monitor the patient post-procedure, get a stat chest x-ray now and we will consult pulmonary as I think he is going to need a chest tube. He is not to lift the left elbow or left shoulder for 1 month. He cannot lift more than 10 pounds with left arm for 2 weeks. He is to keep the dressing on and dry until his wound check next week. Most likely, we will keep him overnight due to the pneumothorax and hopefully discharge home tomorrow. Job ID: [id number] [facility]
--- NOTE | 2022-01-10 13:31 | Discharge Summary ---
Date of Service December 27, 2021 Admission HPI Per Admitting Provider Pt admitted to outside hospital due to SOB; he was found to be in a high degree AV block; his low dose Toprol was held and he was monitored for a few more days; but he continued to have episodes of intermittent CHB and was recommended at minimum a pacemaker prior to discharge. Pt has recently diagnosed NICM with an EF of 20% and moderate . Admission Exam (Per Admitting) Constitutional aaox3, NAD NC/AT, EOMI Supple No JVD Nrl S1/S2, + murmur CTA b/l no w/r/r soft nt/nd no LE edema b/l skin intact no focal deficits Discharge Data Consultations 12/26/21 11:35 Consult Hospice Care Consultant Routine 12/26/21 13:09 Consult Hospice Care Consultant Routine Procedures Performed Operation Date: 12/26/21 10:00 Actual Procedures p ICD Insertion Single or Dual - Linn Navarrete DO s Venogram, Unilateral - Linn Navarrete DO s Bundle of his Recording - Linn Navarrete DO Hospital Course (1) Pneumothorax: (2) NICM (nonischemic cardiomyopathy): (3) Aortic stenosis: (4) Chronic heart failure with reduced ejection fraction and diastolic dysfunction: (5) LBBB (left bundle branch block): (6) Intermittent complete heart block: (7) Biventricular ICD (implantable cardioverter-defibrillator) in place: Plan Pt was transferred from an outside hospital due to NICM, , CHF and LBBB and Intermittent CHB. he underwent a BiV ICD that was complicated with a PTX and required a chest tube. The PTX improved and by POD1 he was good for discharge home.
== END 2021-12-27 15:55 | disposition home or self-care (01) ==
LOC: EP 08:47 → 1E 13:07 → INTOOBSV 13:07
PROC: EPB.ICD (2021-12-26 10:00)